=== PATIENT | female | born 1990 | race African-American/Black ===

== ENCOUNTER 2018-04-14 16:38 | Emergency (ER) | payer MEDICAID, OTHER ==
[~2018-04-14] VITALS: Ht 165.1 cm; Wt 85.0 kg
[~2018-04-14 16:38] MED LIST: PRENA
[2018-04-14 17:38] VITALS: BP 131/77
== END 2018-04-14 20:10 | disposition left against medical advice (07) ==
LOC: ER 16:38
DX: O26.891 Other specified pregnancy related conditions, first trimester (principal); R10.2 Pelvic and perineal pain; R53.1 Weakness; O99.011 Anemia complicating pregnancy, first trimester; Z3A.01 Less than 8 weeks gestation of pregnancy
CPT/HCPCS: 99281

== ENCOUNTER 2021-08-16 10:40 | Emergency (ER) | payer OTHER, MEDICAID ==
[~2021-08-16] VITALS: Ht 165.1 cm; Wt 88.0 kg
[2021-08-16 10:43] VITALS: BP 124/82
[2021-08-16] MEDS ORDERED: KETOROLAC 30MG/ML VIAL IM ONE (11:15)
[2021-08-16] MEDS ORDERED: GUAI600T26 MT ×3 (12:09→12:10)
[2021-08-16] MEDS ORDERED: ACET-2708 MT ×3 (12:09→12:10)
== END 2021-08-16 12:25 | disposition home or self-care (01) ==
LOC: ER 10:40
DX: B34.9 Viral infection, unspecified (principal); D64.9 Anemia, unspecified; J45.909 Unspecified asthma, uncomplicated; Z20.822 Contact with and (suspected) exposure to COVID-19
CPT/HCPCS: 71045; 81025; 87070; 87426; 87430; 96372; 99284; C9803; J1885